=== PATIENT | female | born 1985 | race Caucasian/White ===

== ENCOUNTER 2021-02-02 19:18 | Emergency (ER) | payer OTHER ==
[2021-02-02 19:23] VITALS: BP 156/95; PULSE 100; TEMP 98.4; BMI 41.9
[2021-02-02 20:31] LABS: BASO % 0.3 % (0-2.0); EOS % 1.5 % (0-4.5); HEMATOCRIT 41.5 % (32.4-45.2); HEMOGLOBIN 13.7 GM/dL (10.7-15.3); LYMPH % 24.2 % (8-40); MCHC 33.1 g/dl (32.0-36.0); MEAN CELL VOLUME 87.7 fl (80-96); MEAN PLT VOLUME 8.3 fl (7.5-11.1); MONO % 4.7 % (3.8-10.2); NEUT % 69.3 % (42.8-82.8); PLATELET COUNT 360 K/MM3 (134-434); RBC 4.73 M/mm3 (3.60-5.2); RDW 13.9 % (11.6-15.6); WHITE BLOOD COUNT 13.2 K/mm3 (4.0-10.0)
[2021-02-02 20:48] LABS: CALCIUM 8.9 mg/dL (8.5-10.1)
[2021-02-02 20:49] LABS: ALBUMIN 3.7 g/dl (3.4-5.0)
[2021-02-02 20:52] LABS: CREATININE 0.9 mg/dL (0.55-1.3)
[2021-02-02 20:54] LABS: BILIRUBIN,TOTAL 0.2 mg/dL (0.2-1); TOT PROT 7.5 g/dl (6.4-8.2)
[2021-02-02 21:46] LABS: EPI CELLS >36 /uL (0-25.1); HYALINE CASTS 3 /uL (0-3.1); URINE APPEARANCE CLOUDY; URINE BACTERIA 569 /uL (0-1359); URINE BILIRUBIN NEGATIVE (NEGATIVE); URINE COLOR YELLOW; URINE GLUCOSE (UA) NEGATIVE (NEGATIVE); URINE KETONE NEGATIVE (NEGATIVE); URINE LEUK ESTERASE NEGATIVE (NEGATIVE); URINE NITRITE NEGATIVE (NEGATIVE); URINE PROTEIN TRACE (NEGATIVE); URINE RBC 10 /uL (0-23.9); URINE UROBILINOGEN 0.2 mg/dL (0.2-1.0); URINE WBC 21 /uL (0-25.8)
[2021-02-02 22:13] LABS: YEAST NONE SEEN (NEGATIVE)
== END 2021-02-02 22:29 | disposition home or self-care (01) ==
LOC: JER 19:18
DX: O26.851 Spotting complicating pregnancy, first trimester (principal); Z3A.01 Less than 8 weeks gestation of pregnancy
CPT/HCPCS: 36415; 76817-TC; 80053; 81003; 84439; 84443; 84702; 85025; 86850; 86900; 86901; 87086; 99284-25

== ENCOUNTER 2022-09-25 02:01 | Inpatient (IN) | payer OTHER ==
[2022-09-25] MEDS ORDERED: BETAMET ACET/BETAMET NA PH 30 MG/5 ML VIAL IM ONE (03:00)
[2022-09-25] MEDS: LACTATED RINGERS SOLUTION 1,000 ML/1,000 ML INFUS.BAG IV SCH ×3 (03:15→17:26)
[2022-09-25] MEDS ORDERED: CLINDAMYCIN 900 MG PREMIX IVPB 900 MG/50 ML BAG IVPB ONE ×4 (03:30→20:52)
[2022-09-25] MEDS: CLINDAMYCIN 900 MG PREMIX IVPB 900 MG/50 ML BAG IVPB SCH ×4 (03:34→21:00)
[2022-09-25 04:02] LABS: BASO % 0.6 % (0-2.0); EOS % 0.7 % (0-4.5); HEMATOCRIT 36.1 % (32.4-45.2); HEMOGLOBIN 11.8 GM/dL (10.7-15.3); LYMPH % 15.5 % (8-40); MCHC 32.6 g/dl (32.0-36.0); MEAN CELL VOLUME 82.9 fl (80-96); MEAN PLT VOLUME 8.1 fl (7.5-11.1); MONO % 6.6 % (3.8-10.2); NEUT % 76.6 % (42.8-82.8); PLATELET COUNT 333 10^3/uL (134-434); RBC 4.35 M/mm3 (3.60-5.2); RDW 15.3 % (11.6-15.6)
[2022-09-25 04:22] LABS: INR 0.97 (0.83-1.09); PROTHROMBIN TIME (PATIENT) 11.2 SEC (9.7-13.0)
[2022-09-25 04:24] LABS: ACTIVATED PTT 27.4 SECONDS (25.2-36.5)
[2022-09-25 04:41] LABS: BLOOD UREA NITROGEN 27.5 mg/dL (7-18); CALCIUM 8.8 mg/dL (8.5-10.1)
[2022-09-25 04:45] LABS: CREATININE 0.8 mg/dL (0.55-1.3)
[2022-09-25 04:49] VITALS: BMI 47.9
[2022-09-25 05:38] LABS: HIV INTERPRETATION NEGATIVE (NEGATIVE)
[2022-09-26] MEDS: LACTATED RINGERS SOLUTION 1,000 ML/1,000 ML INFUS.BAG IV SCH ×3 (01:20→09:33)
[2022-09-26] MEDS ORDERED: CLINDAMYCIN 900 MG PREMIX IVPB 900 MG/50 ML BAG IVPB ONE ×2 (03:00→08:22)
[2022-09-26] MEDS ORDERED: BETAMET ACET/BETAMET NA PH 30 MG/5 ML VIAL ONE (03:00)
[2022-09-26] MEDS ORDERED: BETAMET ACET/BETAMET NA PH 30 MG/5 ML VIAL IM ONE (03:00)
[2022-09-26] MEDS: CLINDAMYCIN 900 MG PREMIX IVPB 900 MG/50 ML BAG IVPB SCH ×3 (03:05→15:23)
[2022-09-26] MEDS ORDERED: OXYTOCIN 30 UNITS in 0.9% NS 30 UNIT/500 ML INFUS.BAG IVPB ONE (09:08)
[2022-09-26] MEDS ORDERED: OXYTOCIN 30 UNITS in 0.9% NS 30 UNIT/500 ML INFUS.BAG IVPB SCH (09:45)
[2022-09-26] MEDS ORDERED: ELECTROLYTE-148 SOLN 500 ML IV ONE (13:00)
[2022-09-26] MEDS ORDERED: CITRIC ACID/SODIUM CITRATE 30 ML UNIT-DOSE CUP PO ONE (13:00)
[2022-09-26] MEDS ORDERED: ELECTROLYTE-148 SOLN 1,000 ML IV SCH (13:30)
[2022-09-26] MEDS ORDERED: KETAMINE HCL 500 MG/10 ML VIAL ONE (14:17)
[2022-09-26] MEDS ORDERED: FENTANYL CITRATE/PF 50 MCG/ML VIAL ONE ×2 (14:17→15:34)
[2022-09-26] MEDS ORDERED: morphine SULFATE (PF) 1 MG/2 ML SYRINGE ONE (14:17)
[2022-09-26] MEDS ORDERED: ONDANSETRON 4 MG/2 ML VIAL ONE (14:37)
[2022-09-26] MEDS ORDERED: MIDAZOLAM HCL 2 MG/2 ML SINGLE DOSE VIAL ONE (15:07)
[2022-09-26] MEDS ORDERED: OXYTOCIN 10 UNITS/ML VIAL ONE (15:29)
[2022-09-26] MEDS ORDERED: IBUPROFEN 800 MG/8 ML IJ IVPB PRN (16:19)
[2022-09-26] MEDS ORDERED: ACETAMINOPHEN 1000 MG/100 ML BAG IVPB PRN (16:19)
[2022-09-26] MEDS ORDERED: oxyCODONE HCL 5 MG TABLET PO PRN (16:19)
[2022-09-26] MEDS ORDERED: ACETAMINOPHEN 325 MG TABLET (FP) PO PRN (16:19)
[2022-09-26] MEDS ORDERED: ONDANSETRON 4 MG/2 ML VIAL IVPB PRN (16:19)
[2022-09-26] MEDS ORDERED: ONDANSETRON 4 MG/2 ML VIAL IVPUSH PRN (16:23)
[2022-09-26] MEDS ORDERED: OXYTOCIN 20 UNITS in 0.9% NS 20 UNIT/1,000 ML INFUS.BAG IV SCH (16:30)
[2022-09-26] MEDS ORDERED: OXYTOCIN 20 UNITS in 0.9% NS 20 UNIT/1,000 ML INFUS.BAG IV ONE (17:47)
[2022-09-26] MEDS ORDERED: IBUPROFEN 800 MG/8 ML IJ IVPB ONE (17:56)
[2022-09-26] MEDS: CEFAZOLIN 2 GM in DEXTROSE 5%-WATER - 50 ML IVPB SCH (23:52)
[2022-09-27] MEDS: IBUPROFEN 600 MG TABLET (FP) PO PRN ×3 (06:39→20:06)
[2022-09-27 07:26] LABS: BASO % 0.2 % (0-2.0); HEMATOCRIT 29.8 % (32.4-45.2); HEMOGLOBIN 9.7 GM/dL (10.7-15.3); LYMPH % 9.8 % (8-40); MCH 27.4 pg (25.7-33.7); MCHC 32.6 g/dl (32.0-36.0); MEAN CELL VOLUME 84.2 fl (80-96); MONO % 6.5 % (3.8-10.2); NEUT % 83.5 % (42.8-82.8); PLATELET COUNT 338 10^3/uL (134-434); RBC 3.54 M/mm3 (3.60-5.2); RDW 15.9 % (11.6-15.6); WHITE BLOOD COUNT 18.1 K/mm3 (4.0-10.0)
[2022-09-27] MEDS: CEFAZOLIN 2 GM in DEXTROSE 5%-WATER - 50 ML IVPB SCH (07:59)
[2022-09-27] MEDS: ENOXAPARIN NA (PORCINE) 40 MG/0.4 ML DISP.SYRIN SQ SCH (10:13)
[2022-09-27 12:22] LABS: POC NITRAZINE POS
[2022-09-27] MEDS: SIMETHICONE 80 MG TAB.CHEW (FP) PO PRN ×2 (15:11→20:06)
[2022-09-27] MEDS ORDERED: BISACODYL 10 MG SUPP.RECT RC PRN (16:19)
[2022-09-27] MEDS: SENNOSIDES/DOCUSATE COMBO (SENNA PLUS) TABLET (UD) PO PRN (20:07)
[2022-09-28] MEDS: IBUPROFEN 600 MG TABLET (FP) PO PRN ×3 (06:11→19:58)
[2022-09-28] MEDS: ENOXAPARIN NA (PORCINE) 40 MG/0.4 ML DISP.SYRIN SQ SCH (11:49)
[2022-09-28] MEDS: FERROUS SO4 325 MG TABLET (FP) PO SCH (11:50)
[2022-09-28] MEDS: SIMETHICONE 80 MG TAB.CHEW (FP) PO PRN ×2 (13:52→19:58)
[2022-09-29] MEDS: IBUPROFEN 600 MG TABLET (FP) PO PRN ×3 (05:41→21:23)
[2022-09-29] MEDS ORDERED: ACETAMINOPHEN 325 MG TABLET (FP) PO PRN ×2 (09:45→16:09)
[2022-09-29] MEDS: ENOXAPARIN NA (PORCINE) 40 MG/0.4 ML DISP.SYRIN SQ SCH (11:39)
[2022-09-29] MEDS: FERROUS SO4 325 MG TABLET (FP) PO SCH (11:39)
[2022-09-29] MEDS: SIMETHICONE 80 MG TAB.CHEW (FP) PO PRN ×2 (12:13→21:22)
[2022-09-29] MEDS ORDERED: oxyCODONE HCL 5 MG TABLET PO PRN (16:09)
[2022-09-29] MEDS ORDERED: ACETAMINOPHEN 500 MG TABLET (FP) PO PRN (16:11)
[2022-09-29] MEDS: SENNOSIDES/DOCUSATE COMBO (SENNA PLUS) TABLET (UD) PO PRN (21:22)
[2022-09-30] MEDS: IBUPROFEN 600 MG TABLET (FP) PO PRN ×2 (06:19→10:37)
[2022-09-30 08:35] VITALS: BP 127/73; PULSE 87; RESP 18; TEMP 98.9
[2022-09-30] MEDS: FERROUS SO4 325 MG TABLET (FP) PO SCH (10:37)
[2022-09-30] MEDS: ENOXAPARIN NA (PORCINE) 40 MG/0.4 ML DISP.SYRIN SQ SCH (10:37)
== END 2022-09-30 14:55 | disposition home or self-care (01) | DRG 540 ==
LOC: JDEL 02:01 → JLDR 02:35 → J3W 09-26 18:22
PROVIDERS: ADMIT Specialist; ATTEND Specialist
PROC: 10D00Z1 Extraction of Products of Conception, Low, Open Approach (ICD-10-PCS; principal; 2022-09-25)
DX: O42.113 Preterm premature rupture of membranes, onset of labor more than 24 hours following rupture, third trimester (principal); O60.14X0 Preterm labor third trimester with preterm delivery third trimester, not applicable or unspecified; O76 Abnormality in fetal heart rate and rhythm complicating labor and delivery; O99.214 Obesity complicating childbirth; E66.01 Morbid (severe) obesity due to excess calories; Z3A.35 35 weeks gestation of pregnancy; Z37.0 Single live birth
CPT/HCPCS: 36415; 59025; 71045-TC-FY; 80048; 80053; 82962; 83986-QW; 85025; 85027; 85610; 85730; 86780; 86850; 86900; 86901; 87389; 88307-TC; 94010; 96372; C9803-CS; U0003; U0005